=== PATIENT | female | born 1975 ===

== ENCOUNTER 2020-03-06 20:29 | Emergency (ER) | payer BC ==
[2020-03-06] MEDS ORDERED: Lidocaine 2% 20 ml MDV ONE (22:36)
[2020-03-06] MEDS ORDERED: Boostrix 0.5 ML (Tdap) VIAL ONE (22:43)
[2020-03-06] MEDS ORDERED: Sterile Water Irrigation 250 ML BOT ONE (23:02)
[2020-03-06] MEDS ORDERED: Bacitracin 1 PK ONE (23:20)
[2020-03-06] MEDS ORDERED: Cephalexin 500 MG CAP ONE (23:20)
== END 2020-03-06 23:24 | disposition home or self-care (01) ==
LOC: MADERS 20:29
DX: S01.511A Laceration without foreign body of lip, initial encounter (principal); V89.2XXA Person injured in unspecified motor-vehicle accident, traffic, initial encounter
CPT/HCPCS: 40652; 90471; 90715